=== PATIENT | female | born 1985 | race Caucasian/White ===

== ENCOUNTER 2021-06-20 14:44 | Outpatient (CLI) | payer OTHER, SELFPAY ==
[2021-06-20 14:58] LABS: Basophils Absolute Auto 0.05 K/mm3 (0.00-0.10); Basophils Percent Auto 0.5 % (0.0-1.0); Eosinophils Absolute Auto 0.13 K/mm3 (0.02-0.50); Eosinophils Percent Auto 1.4 % (1.0-6.0); Hematocrit 43.1 % (35.0-49.0); Hemoglobin 14.2 g/dL (12.0-15.0); Immature Granulocyte Absolute 0.04 K/mm3 (0.00-0.00); Immature Granulocyte Percent A 0.4 % (0.0-0.0); Lymphocytes Absolute Auto 2.76 K/mm3 (1.10-4.50); Mean Corpuscular HGB Conc 32.9 g/dL (32.0-36.0); Mean Corpuscular Hemoglobin 29.5 pg (27.0-31.0); Mean Corpuscular Volume 89.4 fL (78.0-102.0); Mean Platelet Volume 9.9 fl (9.2-11.8); Monocytes Absolute Auto 0.57 K/mm3 (0.10-0.90); Neutrophils Percent Auto 62.7 % (50.0-70.0); Platelet Count Result 270 K/mm3 (150-420); Red Blood Count 4.82 M/mm3 (4.20-5.40); Red Cell Distribution Width 12.2 % (11.6-14.4); White Blood Count 9.5 K/mm3 (4.8-10.8)
[2021-06-20 15:10] LABS: D Dimer 0.19 mg/L (0.19-0.50)
[2021-06-20 15:44] LABS: Alanine Aminotransferase 21 U/L (14-59); Albumin Level 3.9 g/dL (3.4-5.0); Alkaline Phosphatase 47 U/L (46-116); Anion Gap 11 mmol/L (8-16); Aspartate Amino Transferase 10 U/L (15-37); Bilirubin,Total 0.6 mg/dL (0.00-1.00); Blood Urea Nitrogen 7 mg/dL (7-18); Calcium 8.9 mg/dL (8.5-10.1); Carbon Dioxide 26 mmol/L (21-32); Chloride 104 mmol/L (98-108); Creatine Kinase 107 U/L (26-192); Estimated Glomerular Filt Rate > 60; Free T4 Free Thyroxine 1.13 ng/dL (0.76-1.46); Glucose 97 mg/dL (70-99); Osmolality Calculated 290 mOsm/kg (285-295); Potassium 3.7 mmol/L (3.5-5.1); Sodium 141 mmol/L (136-145); Total Protein 7.8 g/dL (6.4-8.2)
[2021-06-20 15:45] LABS: Troponin I < 4.0 ng/L (0.00-60.4)
== END 2021-06-20 14:45 | disposition home or self-care (01) ==
LOC: CHSLAB 14:47
PROVIDERS: PCP Internal Medicine; Visit Provider Nurse Practitioner Family
DX: R06.02 Shortness of breath (principal); I10 Essential (primary) hypertension; R07.9 Chest pain, unspecified
CPT/HCPCS: 36415; 80053; 82550; 82553; 84439; 84443; 84484; 85025; 85380

== ENCOUNTER 2022-02-28 15:49 | Outpatient (CLI) | payer OTHER, MEDICAID, SELFPAY ==
--- NOTE | ~2022-02-28 | XR_ITS ---
XR lumbar spine 2-3V DATE: 02/28/2022 16:18 INDICATION: Left low back pain, radiating to left leg for one week. No known injury. TECHNIQUE: AP, lateral and coned lateral lumbosacral views COMPARISON: None FINDINGS: There is mild levoscoliosis of the lumbar spine. No fracture or bone destruction or spondyl olisthesis. The lumbar pedicles are intact. Lumbar and lumbosacral interspaces are well preserved. The sacroiliac joints are normal. IMPRESSION: Mild levoscoliosis; otherwise negative Reviewed, dictated and finalized at location A.
== END 2022-02-28 15:50 | disposition home or self-care (01) ==
LOC: CHSIMG 15:55
PROVIDERS: PCP Internal Medicine; Visit Provider Nurse Practitioner Family
DX: M54.50 Low back pain, unspecified (principal); R22.2 Localized swelling, mass and lump, trunk
CPT/HCPCS: 72100

== ENCOUNTER 2022-03-05 12:45 | Outpatient (CLI) | payer OTHER, MEDICAID, SELFPAY ==
--- NOTE | ~2022-03-05 | US_ITS ---
EXAMINATION: US soft tissue lower back DATE: 03/05/2022 13:14 INDICATION: Low back pain with palpable lump at the lower back TECHNIQUE: Multiple grayscale and Doppler ultrasound images of the region of concern at the left lowe r back were obtained. COMPARISON: None FINDINGS: 2.6 x 1.3 x 3.8 cm lenticular hypoechoic subcutaneous mass at the region of concern which is isoechoi c and with similar echotexture and internal septated architecture as the surrounding subcutaneous fat . No evident internal vascular flow on color Doppler. IMPRESSION: 1. Nonspecific 2.6 x 1.3 x 3.8 cm lenticular subcutaneous mass at the left lower back at the region o f concern with appearance consistent with and statistically most likely to represent a lipoma. Reviewed, dictated and finalized at location B. IMPRESSION: 1. Nonspecific 2.6 x 1.3 x 3.8 cm lenticular subcutaneous mass at the left lowe r back at the region of concern with appearance consistent with and statistical ly most likely to represent a lipoma.
== END 2022-03-05 12:46 | disposition home or self-care (01) ==
LOC: CHSIMG 12:46
PROVIDERS: PCP Internal Medicine; Visit Provider Nurse Practitioner Family
DX: M54.50 Low back pain, unspecified (principal); R22.2 Localized swelling, mass and lump, trunk
CPT/HCPCS: 76705

== ENCOUNTER 2022-03-18 11:39 | Outpatient (CLI) | payer SELFPAY ==
[2022-03-18 12:05] LABS: Basophils Absolute Auto 0.06 K/mm3 (0.00-0.10); Basophils Percent Auto 0.6 % (0.0-1.0); Eosinophils Absolute Auto 0.24 K/mm3 (0.02-0.50); Eosinophils Percent Auto 2.5 % (1.0-6.0); Hematocrit 42.6 % (35.0-49.0); Immature Granulocyte Absolute 0.04 K/mm3 (0.00-0.00); Immature Granulocyte Percent A 0.4 % (0.0-0.0); Lymphocytes Absolute Auto 2.61 K/mm3 (1.10-4.50); Lymphocytes Percent Auto 26.9 % (18.0-42.0); Mean Corpuscular HGB Conc 32.9 g/dL (32.0-36.0); Mean Corpuscular Hemoglobin 30.6 pg (27.0-31.0); Mean Platelet Volume 10.1 fl (9.2-11.8); Monocytes Absolute Auto 0.49 K/mm3 (0.10-0.90); Monocytes Percent Auto 5.1 % (2.0-11.0); Neutrophils Absolute Auto 6.3 K/mm3 (1.7-7.2); Neutrophils Percent Auto 64.5 % (50.0-70.0); Platelet Count Result 241 K/mm3 (150-420); Red Blood Count 4.58 M/mm3 (4.20-5.40); Red Cell Distribution Width 12.7 % (11.6-14.4); White Blood Count 9.7 K/mm3 (4.8-10.8)
[2022-03-18 12:33] LABS: SPREG INTERNAL CONTROL Positive; Serum Qual hCG Positive
[2022-03-18 12:45] LABS: Alanine Aminotransferase 12 U/L (14-59); Albumin Level 3.4 g/dL (3.4-5.0); Alkaline Phosphatase 58 U/L (46-116); Anion Gap 9 mmol/L (8-16); Aspartate Amino Transferase < 10 U/L (15-37); Bilirubin,Total 0.3 mg/dL (0.00-1.00); Blood Urea Nitrogen 9 mg/dL (7-18); Calcium 8.4 mg/dL (8.5-10.1); Carbon Dioxide 25 mmol/L (21-32); Chloride 106 mmol/L (98-108); Estimated Glomerular Filt Rate > 60; Glucose 110 mg/dL (70-99); Osmolality Calculated 289 mOsm/kg (285-295); Potassium 3.7 mmol/L (3.5-5.1); Sodium 140 mmol/L (136-145); Total Protein 6.5 g/dL (6.4-8.2)
== END 2022-03-18 11:40 | disposition home or self-care (01) ==
LOC: CHSLAB 11:41
PROVIDERS: PCP Internal Medicine; Visit Provider Nurse Practitioner Family
DX: N91.2 Amenorrhea, unspecified (principal); Z32.01 Encounter for pregnancy test, result positive
CPT/HCPCS: 36415; 80053; 84702; 84703; 85025

== ENCOUNTER 2022-03-26 08:01 | Outpatient (CLI) | payer OTHER, SELFPAY | END 2022-03-26 08:02 | disposition home or self-care (01) | LOC: CHSLAB 08:05 | PROVIDERS: PCP Internal Medicine; Visit Provider Nurse Practitioner Family | DX: N91.2 Amenorrhea, unspecified (principal) | CPT/HCPCS: 36415; 84702 ==

== ENCOUNTER 2022-09-15 16:38 | Emergency (ER) | payer OTHER, SELFPAY ==
--- NOTE | ~2022-09-15 | XR_ITS ---
EXAMINATION: XR chest 1V portable Exam Date/Time: 09/15/2022 18:00 PBX SUPERVISOR HISTORY: cough Comparison: 03/31/2017. RESULT: Lines, tubes, and devices: None. Lungs and pleura: Clear. Calcified granulomas. Cardiomediastinal silhouette: Stable. Other: No acute osseous or upper abdominal finding. IMPRESSION: No acute cardiopulmonary process. Reviewed, dictated and finalized at location K. SUPERVISOR
[2022-09-15 16:52] VITALS: BP 128/87; PULSE 75; RESP 16; TEMP 36.4; O2SAT 99
--- NOTE | 2022-09-15 17:13 | ED.URI ---
HPI - URI/Sore Throat General Chief Complaint: Upper Respiratory Infection Stated Complaint: body aches, sore throat, cough Time Seen by Provider: 09/15/22 17:04 Source: patient Mode of arrival: ambulatory Limitations: no limitations History of Present Illness HPI Narrative: 37-year-old female [employer] worker smoker presents to the ER with a 1 day history of -- body aches -- chills and sweating -- cough with mucopurulent sputum -- sore throat -- nasal congestion the patient has had repeated negative tests for COVID. MD elicited complaint: fever, cough, sore throat and nasal congestion Onset (ago): day(s) ( Started yesterday) Consistency: constant Description of mucous: yellow Able to tolerate fluids by mouth: Yes Exacerbating factors: nothing Relieving factors: nothing Context: sick contacts Associated symptoms: fever, chills, voice changes, nasal congestion, sore throat and cough Treatments prior to arrival: none Related Data Allergies Allergy/AdvReac Type Severity Reaction Status Date / Time Penicillins Allergy Unknown RASH Verified 09/15/22 16:55 Sulfa (Sulfonamide Allergy Unknown RASH Verified 09/15/22 16:55 Antibiotics) Review of Systems Review of Systems: All systems reviewed & are unremarkable except as noted in HPI and below Constitutional: Constitutional: Reports as per HPI, Reports no additional constitutional complaints, Reports body ache(s), Reports chills, Reports fever(s) and Reports weakness Eyes: Eyes: Reports as per HPI and Reports no additional eye complaints ENT: Reports system reviewed and no additional complaints, except as documented, Reports as per HPI, Reports nasal congestion, Reports sinus pressure and Reports sore throat Cardiovascular: Cardiovascular: Reports as per HPI and Reports no additional cardiovascular complaints Respiratory: Respiratory: Reports as per HPI, Reports no additional respiratory complaints, Reports excessive phlegm production and Reports pain with cough Gastrointestinal: Gastrointestinal: Reports as per HPI and Reports no additional gastrointestinal complaints Genitourinary: Genitourinary: Reports no additional female genitourinary complaints and Reports as per HPI Musculoskeletal: Musculoskeletal: Reports no additional musculoskeletal complaints and Reports as per HPI Integumentary/Breasts: Skin/Breast: Reports system reviewed and no additional complaints, except as docu and Reports as per HPI Neurologic: Reports system reviewed and no additional complaints, except as documented and Reports as per HPI Psychiatric: Psychiatric: Reports no additional psychiatric complaints and Reports as per HPI Endocrine: Endocrine: Reports no additional endocrine complaints and Reports as per HPI Hematologic/Lymphatic: Hematologic/Lymphatic: Reports no additional hematologic/lymphatic complaints and Reports as per HPI Allergic/Immunologic: Allergic/Immunologic: Reports no additional allergic/immunologic complaints and Reports as per HPI [facility] Social History Social History Smoking status: Current every day smoker Tobacco type: cigarettes Alcohol intake: current Alcohol use details: Socially Additional occupation/education comments: Work Distributor Gender identity (if verbalized by the patient): Female Exam Const: General: cooperative and healthy appearing HENMT: Head: normal to inspection, No palpable skull fracture present, normocephalic and atraumatic Ears: hearing grossly normal bilaterally Face/Nose/Sinus: Normal external nose present and Normal nares present Face and sinus: normal facial exam and sinuses nontender Mouth: Yes Normal oral and palatal mucosa present, Yes lip normal and Yes tongue normal Throat: posterior oropharynx normal Eyes: General: appearance normal, both eyes and all related structures Visual Pagan: normal visual pagan by confrontation Neck: Neck: normal visual inspection,
[2022-09-15 17:37] LABS: Basophils Absolute Auto 0.06 K/mm3 (0.00-0.10); Basophils Percent Auto 0.6 % (0.0-1.0); Eosinophils Absolute Auto 0.29 K/mm3 (0.02-0.50); Eosinophils Percent Auto 3.1 % (1.0-6.0); Hematocrit 39.6 % (35.0-49.0); Hemoglobin 12.8 g/dL (12.0-15.0); Immature Granulocyte Absolute 0.03 K/mm3 (0.00-0.00); Immature Granulocyte Percent A 0.3 % (0.0-0.0); Lymphocytes Absolute Auto 2.52 K/mm3 (1.10-4.50); Mean Corpuscular HGB Conc 32.3 g/dL (32.0-36.0); Mean Corpuscular Hemoglobin 30.2 pg (27.0-31.0); Mean Corpuscular Volume 93.4 fL (78.0-102.0); Mean Platelet Volume 9.8 fl (9.2-11.8); Monocytes Absolute Auto 0.79 K/mm3 (0.10-0.90); Monocytes Percent Auto 8.4 % (2.0-11.0); Neutrophils Absolute Auto 5.7 K/mm3 (1.7-7.2); Neutrophils Percent Auto 60.6 % (50.0-70.0); Platelet Count Result 237 K/mm3 (150-420); Red Blood Count 4.24 M/mm3 (4.20-5.40); Red Cell Distribution Width 12.3 % (11.6-14.4); White Blood Count 9.4 K/mm3 (4.8-10.8)
[2022-09-15 17:44] LABS: Add Urine Microscopic? NO; Appearance Urine Clear (Clear); Bilirubin Urine Negative (Negative); Blood Urine Negative (Negative); Color Urine Light Yellow (Yellow); Glucose Urine UA Negative (Negative); Ketones Urine Negative (Negative); Leukocyte Esterase Ur Negative LEU/UL (Negative); Nitrate Urine Negative (Negative); Protein Urine Negative (Negative)
[2022-09-15 17:46] LABS: Pregnancy On Board Control Positive; Urine Pregnancy Test Negative
[2022-09-15 17:52] LABS: Alanine Aminotransferase 11 U/L (14-59); Albumin Level 3.4 g/dL (3.4-5.0); Alkaline Phosphatase 49 U/L (46-116); Anion Gap 4 mmol/L (8-16); Aspartate Amino Transferase < 10 U/L (15-37); Bilirubin,Total 0.2 mg/dL (0.00-1.00); Blood Urea Nitrogen 15 mg/dL (7-18); Calcium 8.1 mg/dL (8.5-10.1); Carbon Dioxide 28 mmol/L (21-32); Chloride 107 mmol/L (98-108); Estimated Glomerular Filt Rate > 60; Glucose 94 mg/dL (70-99); Osmolality Calculated 288 mOsm/kg (285-295); Potassium 3.9 mmol/L (3.5-5.1); Sodium 139 mmol/L (136-145); Total Protein 6.4 g/dL (6.4-8.2)
[2022-09-15 18:01] LABS: Influenza A QL RT-PCR Negative (Negative); Influenza B QL RT-PCR Negative (Negative); SARS-CoV-2 RNA PCR Negative (Negative)
[2022-09-15 18:08] LABS: RSV RNA, RT-PCR Negative (Negative)
[2022-09-15 18:30] VITALS: O2SAT 100
[2022-09-15] MEDS: AZITHROMYCIN 250 MG TABLET 500 MG PO (18:34)
[2022-09-15 18:35] VITALS: BP 109/77; PULSE 77; RESP 16; TEMP 36.8; O2SAT 97
== END 2022-09-15 18:37 | disposition home or self-care (01) ==
PROVIDERS: Emergency Provider Internal Medicine Critical Care Medicine; PCP Internal Medicine
DX: J06.9 Acute upper respiratory infection, unspecified (principal); J40 Bronchitis, not specified as acute or chronic; F17.210 Nicotine dependence, cigarettes, uncomplicated; Z20.822 Contact with and (suspected) exposure to COVID-19
CPT/HCPCS: 36415; 71045; 80053; 81003; 81025; 85025; 87637; 99283; A9270

== ENCOUNTER 2023-12-22 09:15 | Outpatient (CLI) | payer OTHER, SELFPAY ==
[2023-12-22 09:39] LABS: Basophils Absolute Auto 0.06 K/mm3 (0.00-0.10); Basophils Percent Auto 0.6 % (0.0-1.0); Eosinophils Absolute Auto 0.22 K/mm3 (0.02-0.50); Eosinophils Percent Auto 2.3 % (1.0-6.0); Hematocrit 47.2 % (35.0-49.0); Hemoglobin 15.2 g/dL (12.0-15.0); Immature Granulocyte Absolute 0.03 K/mm3 (0.00-0.00); Immature Granulocyte Percent A 0.3 % (0.0-0.0); Lymphocytes Absolute Auto 2.23 K/mm3 (1.10-4.50); Mean Corpuscular HGB Conc 32.2 g/dL (32-36); Mean Corpuscular Hemoglobin 29.2 pg (27.0-31.0); Mean Corpuscular Volume 90.6 fL (78.0-102.0); Mean Platelet Volume 9.9 fl (9.2-11.8); Monocytes Absolute Auto 0.63 K/mm3 (0.10-0.90); Monocytes Percent Auto 6.5 % (2.0-11.0); Neutrophils Absolute Auto 6.54 K/mm3 (1.70-7.20); Neutrophils Percent Auto 67.3 % (50.0-70.0); Platelet Count Result 243 K/mm3 (150-420); Red Blood Count 5.21 M/mm3 (4.20-5.40); Red Cell Distribution Width 12.8 % (11.6-14.4); White Blood Count 9.7 K/mm3 (4.8-10.8)
[2023-12-22 09:50] LABS: Appearance Urine Clear (Clear); Bilirubin Urine Negative (Negative); Blood Urine Trace-intact (Negative); Color Urine Yellow (Yellow); Glucose Urine UA Negative (Negative); Ketones Urine Trace (Negative); Leukocyte Esterase Ur Negative (Negative); Nitrate Urine Negative (Negative); Protein Urine Negative (Negative); Specific Grav Ur >= 1.030 (1.010-1.020); Urobilinogen Urine 0.2 mg/dL (0.2-1.0)
[2023-12-22 09:58] LABS: Add Urine Microscopic? YES; RBC Urine None seen /hpf (0-2); Squamous Epithelial Cell Urine Moderate /hpf (Few); WBC Urine None seen /hpf (0-3)
[2023-12-22 09:59] LABS: Bacteria Urine 1+ /hpf; Mucus Urine Moderate /lpf
[2023-12-22 10:21] LABS: Alanine Aminotransferase 17 U/L (14-59); Albumin Level 3.5 g/dL (3.4-5.0); Alkaline Phosphatase 37 U/L (46-116); Amylase 37 U/L (25-115); Anion Gap 10 mmol/L (4-12); Aspartate Amino Transferase 14 U/L (15-37); Bilirubin,Total 0.6 mg/dL (0.00-1.00); Blood Urea Nitrogen 16 mg/dL (7-18); Calcium 8.5 mg/dL (8.5-10.1); Carbon Dioxide 24 mmol/L (21-32); Chloride 105 mmol/L (98-108); Estimated Glomerular Filt Rate > 60; Glucose 90 mg/dL (70-99); Lipase 25 U/L (16-77); Osmolality Calculated 289 mOsm/kg (285-295); Potassium 4.6 mmol/L (3.5-5.1); Sodium 139 mmol/L (136-145); Total Protein 6.6 g/dL (6.4-8.2)
== END 2023-12-22 09:16 | disposition home or self-care (01) ==
LOC: CHSLAB 09:22
PROVIDERS: PCP Internal Medicine; Visit Provider Internal Medicine
DX: R10.9 Unspecified abdominal pain (principal); R19.7 Diarrhea, unspecified
CPT/HCPCS: 36415; 80053; 81001; 82150; 83690; 85025

== ENCOUNTER 2023-12-23 07:13 | Outpatient (CLI) | payer OTHER, SELFPAY ==
--- NOTE | ~2023-12-23 | US_ITS ---
Limited Abdominal Sonogram: Real-time sonographic imaging of the right upper quadrant was performed. Clinical History: Abdominal pain Findings: The liver appears normal with no evidence of mass lesion or bile duct dilatation. Main por kyrie vein demonstrates normal direction of flow. The gallbladder is well distended, and appears normal with no evidence of gallstone or wall thickening. The common bile duct measures 5 mm. The visualize d pancreas, aorta, and IVC are unremarkable. Impression: No significant abnormality seen. Reviewed, dictated and finalized at location . Impression: No significant abnormality seen.
== END 2023-12-23 07:14 | disposition home or self-care (01) ==
LOC: CHSIMG 07:15
PROVIDERS: PCP Internal Medicine; Visit Provider Internal Medicine
DX: R10.9 Unspecified abdominal pain (principal); R19.7 Diarrhea, unspecified
CPT/HCPCS: 76705

== ENCOUNTER 2024-01-25 15:46 | Emergency (ER) | payer OTHER, SELFPAY ==
[2024-01-25 16:00] VITALS: BP 130/83; PULSE 79; RESP 14; TEMP 37.1; O2SAT 99
--- NOTE | 2024-01-25 17:34 | ED.SKABFB ---
HPI - Skin/Abscess/Foreign Bdy General Chief complaint: Skin/Abscess/Foreign Body Stated complaint: possible spider bite Time Seen by Provider: 01/25/24 17:00 History of Present Illness HPI narrative: 38-year-old female presents to emergency department for concerns for a bug bite to her right upper extremity. Patient states yesterday she was fishing when she noticed a bite to her right arm. She thought was a mosquito bite. States she woke up this morning and it was red and inflamed and now has a blister to the area. She denies fever but notes some nausea, no emesis. Tdap is up-to-date per patient. Related Data Allergies Allergy/AdvReac Type Severity Reaction Status Date / Time Penicillins Allergy Unknown RASH Verified 09/15/22 16:55 Sulfa (Sulfonamide Allergy Unknown RASH Verified 09/15/22 16:55 Antibiotics) Review of Systems Review of Systems: CONSTITUTIONAL: Denies fever, chills, or sweats. EYES: Denies visual changes, redness, or discharge. ENT: Denies rhinorrhea, congestion, sore throat, or otalgia. CARDIOVASCULAR: Denies chest pain, palpitations, or edema. RESPIRATORY: Denies cough or dyspnea. GASTROINTESTINAL: Denies abdominal pain, nausea, vomiting, or diarrhea. GENITOURINARY: Denies dysuria or hematuria. SKIN: See HPI MUSCULOSKELETAL: Denies back pain, joint pain, or myalgia. NEUROLOGIC: Denies headache, numbness, or weakness. PSYCHIATRIC: Denies anxiety or depression. 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 HEAD: Normocephalic, atraumatic. NECK: Supple. CHEST: Clear to auscultation. No respiratory distress. HEART: Regular rate and rhythm. No murmur heard. Normal peripheral pulses. EXTREMITIES: Normal range of motion. No edema. SKIN: RUE: 0.5 cm intact vesicle to the distal aspect of the anterolateral upper arm with surrounding erythema, warmth and induration. Tender to palpation over lying these areas. There is no circumferential erythema or induration. Compartments are soft. Full active range of motion of although, however does report stiffness with extension of elbow. No overlying erythema or edema to the elbow. Radial pulse 2 +. Sensation intact. NEURO: No focal deficits. Alert and oriented x3 Course Vital Signs Vital signs: Vital Signs Temperature 98.8 F 01/25/24 16:00 Pulse Rate 79 01/25/24 16:00 Respiratory Rate 14 01/25/24 16:00 Blood Pressure 130/83 01/25/24 16:00 Pulse Oximetry 99 01/25/24 16:00 Temperature 98.8 F 01/25/24 16:00 Pulse Rate 79 01/25/24 16:00 Respiratory Rate 14 01/25/24 16:00 Blood Pressure 130/83 01/25/24 16:00 Pulse Oximetry 99 01/25/24 16:00 MDM - Skin/Abscess/Foreign Bdy MDM Narrative Medical decision making narrative: 38-year-old female presents to the emergency department for concerns for an infected bug bite to her right upper arm. See HPI for further history. Triage vital stable. Exam is consistent with cellulitis. She is neurovascularly intact. Cellulitis is not circumferential and does not extend over the elbow joint. Shared decision making regarding obtaining lab work for further evaluation. Patient is requesting to trial antibiotics prior to further evaluation and agrees to follow-up closely with her primary care provider. She is allergic to PCNs but states she has tolerated Keflex previously. First dose of Keflex provided in the ED. advised Tylenol ibuprofen for pain. Strict ED return precautions discussed. She is agreeable to plan verbalized understanding. Disch
[2024-01-25] MEDS: CEPHALEXIN 500 MG CAPSULE PO (17:58)
[2024-01-25] MEDS: ONDANSETRON HCL ODT 4 MG TABLET PO (17:58)
== END 2024-01-25 18:03 | disposition home or self-care (01) ==
PROVIDERS: Emergency Provider Physician Assistant; PCP Internal Medicine
DX: S40.861A Insect bite (nonvenomous) of right upper arm, initial encounter (principal); F17.210 Nicotine dependence, cigarettes, uncomplicated; L03.113 Cellulitis of right upper limb; W57.XXXA Bitten or stung by nonvenomous insect and other nonvenomous arthropods, initial encounter
CPT/HCPCS: 99283; A9270

== ENCOUNTER 2024-02-26 07:45 | Outpatient (CLI) | payer OTHER, SELFPAY ==
--- NOTE | ~2024-02-26 | MM_ITS ---
EXAMINATION: MM screening grace BI w tonja HISTORY: Screening TECHNIQUE: Craniocaudal and mediolateral oblique 3-D tomosynthesis images were obtained and synthetic 2-D images were generated. CAD analysis was submitted and interpreted. COMPARISON: No prior mammogram is available for comparison at this institution. BREAST PARENCHYMAL COMPOSITION: Dense: The breasts are heterogeneously dense, which may obscure small masses FINDINGS: There is no evidence of suspicious mass, calcification, or architectural distortion to sugg est malignancy in either breast. There has been no suspicious interval change. IMPRESSION: 1. No mammographic evidence of malignancy. 2. Recommend routine screening mammography in one year. BI-RADS Category 1: Negative Reviewed, dictated and finalized at location B.
== END 2024-02-26 07:46 | disposition home or self-care (01) ==
LOC: CHSIMG 07:46
PROVIDERS: PCP Internal Medicine; Visit Provider Internal Medicine
DX: Z12.31 Encounter for screening mammogram for malignant neoplasm of breast (principal)
CPT/HCPCS: 77063; 77067

== ENCOUNTER 2025-05-02 15:54 | Outpatient (RCR) | payer OTHER, SELFPAY ==
--- NOTE | 2025-05-02 17:12 | PTOPEVAL1 ---
Assessment and note entered by Louise Sinclair DPT Evaluation Information Assessment Status Evaluation Diagnosis R shoulder pain, neck pain ICD-10 Condition Codes (PT) Cervicalgia M54.2,Pain in right shoulder M25.511 Onset 04/26/25 Subjective Information Patient reports that 2 weeks ago at work she started with R arm pain down into her arm. She does not recall an injury that day. She reports the next day she went to the MD and they prescribed a steroid. She reports that she had an x-ray of the shoulder and elbow. 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 She reports she does have L sided neck pain. She reports pain with turning her head to drive, reaching over head, sleeping and completing house hold task. She reports she is supposed to see MD again in 2 weeks. Reported Pain Level Pain Score 1,6: Self Report Assessment PT Clinical Summary Ms. Boone is a 40 year old female who presents to PT with R shoulder and neck pain. She demonstrates decreased B cervical ROM, decreased R shoulder strength and impaired posture limiting her ability to drive, reach over head and complete house hold tasks. She would benefit from skilled PT to address impairments and return to PLOF. Plan of Care Interventions Electrical Stimulation,Hot Pack/Cold Pack,Manual Therapy,Mechanical Traction,Neuro Re-education, Patient/Caregiver Education,Therapeutic Activities ,Therapeutic Exercise PT Services Indicated Yes Treatment Frequency and 2x weekly for 10 visits Duration These treatments will address the objective and functional deficits as defined above. The patient will be advanced safely and appropriately in order for the patient to progress towards his/her prior level of function. Additional exercises will be introduced and as well as a comprehensive home exercise program upon discharge, if needed, ?to ensure carryover of functional gains achieved in the clinic. This treatment plan has been reviewed and agreement upon by the patient.
--- NOTE | 2025-05-18 17:29 | PCPTNOTE ---
Patient called & cancelled scheduled appointment this date due to work.
== END 2025-05-25 20:00 | disposition home or self-care (01) ==
LOC: CHSPT 15:54
PROVIDERS: PCP Internal Medicine; Visit Provider Internal Medicine
DX: M54.2 Cervicalgia (principal); M19.121 Post-traumatic osteoarthritis, right elbow
CPT/HCPCS: 97012; 97014; 97110; 97140; 97150; 97161; G0283